=== PATIENT | male | born 1960 | race Two or more races ===

== ENCOUNTER 2016-10-08 21:50 | Emergency (ER) | payer OTHER ==
[~2016-10-08] VITALS: Ht 167.6 cm; Wt 66.0 kg
[2016-10-08] MEDS ORDERED: LISI-622 PO (22:44)
[2016-10-08] MEDS ORDERED: SERT100T12 PO (22:44)
[2016-10-09 00:10] VITALS: BP 158/100
[2016-10-09] MEDS ORDERED: IBUPROFEN 600 MG TABLET PO ONE (00:15)
== END 2016-10-09 00:26 | disposition home or self-care (01) ==
LOC: EMS 21:55
DX: S00.83XA Contusion of other part of head, initial encounter (principal); I10 Essential (primary) hypertension; Y04.2XXA Assault by strike against or bumped into by another person, initial encounter; Y93.89 Activity, other specified; Y92.512 Supermarket, store or market as the place of occurrence of the external cause; Y99.8 Other external cause status
CPT/HCPCS: 99283